=== PATIENT | female | born 1980 | race Caucasian/White ===

== ENCOUNTER 2023-04-02 09:17 | Emergency (ER) | payer MEDICAID ==
[2023-04-02] MEDS ORDERED: Ketorolac 10 MG Tab PO ONE (10:38)
== END 2023-04-02 11:34 | disposition home or self-care (01) ==
LOC: JP.ED 09:17
DX: R07.89 Other chest pain (principal); M54.2 Cervicalgia; Z88.1 Allergy status to other antibiotic agents; Z98.890 Other specified postprocedural states
CPT/HCPCS: 71046; 99283; A9270